=== PATIENT | female | born 1945 | race Two or more races ===

== ENCOUNTER 2017-06-24 11:37 | Emergency (ER) | payer MEDICARE, MEDICAID ==
[~2017-06-24] VITALS: Ht 154.9 cm; Wt 80.0 kg
[2017-06-24] MEDS ORDERED: AMLO5TAB2 PO (13:27)
[2017-06-24] MEDS ORDERED: VALS160T3 PO (13:27)
[2017-06-24] MEDS ORDERED: ATOR20TA9 PO (13:27)
[2017-06-24 14:22] LABS: HEMATOCRIT 32.9 % (34.6-47.8); HEMOGLOBIN 11.1 g/dL (11.7-16.4)
[2017-06-24 14:31] LABS: BLOOD UREA NITROGEN 26 mg/dL (7-18)
[2017-06-24] MEDS ORDERED: IBUPROFEN 200 MG TABLET ONE (15:57)
[2017-06-24] MEDS ORDERED: IBUPROFEN 200 MG TABLET PO ONE (16:00)
[2017-06-24 16:06] VITALS: BP 161/80
== END 2017-06-24 16:08 | disposition home or self-care (01) ==
LOC: ED 15:28
DX: S22.41XA Multiple fractures of ribs, right side, initial encounter for closed fracture (principal); G89.11 Acute pain due to trauma; E11.9 Type 2 diabetes mellitus without complications; E78.00 Pure hypercholesterolemia, unspecified; I10 Essential (primary) hypertension; Z95.0 Presence of cardiac pacemaker; W10.9XXA Fall (on) (from) unspecified stairs and steps, initial encounter; Y93.01 Activity, walking, marching and hiking; Y92.008 Other place in unspecified non-institutional (private) residence as the place of occurrence of the external cause; Y99.8 Other external cause status
CPT/HCPCS: 36415; 70450; 71020; 72072; 72125; 80048; 82040; 85025; 93005; 99285